=== PATIENT | male | born 1970 | race Caucasian/White ===

== ENCOUNTER → 2016-03-18 | Outpatient (CLI) | payer OTHER ==
--- NOTE | 2016-03-18 12:01 | RAD ---
APPROVED REPORT Test Type: Exercise Stress Nurse/Tech: Carolina Durham R.N. Test Indications: Pre-cordial pain. Cardiac History: HTN Medications: SEE EMR Medical History: SEE EMR Resting ECG: SR Resting Heart Rate: 86 bpm Resting Blood Pressure: 140/90mmHg Pretest Chest Pain: No chest pain Nurse/Tech Notes S1S2, lungs CTA, denied chest pain, dizziness or SOA. Consent: The procedure was explained to the patient in lay terms. Informed consent was witnessed. Chilo eout was entered into [employer]. History and Stress Test performed by Carolina Durham R.N. Stress Symptoms SOA. POST EXERCISE Reason for Termination: Reached target heart rate Target HR: 147 Max HR: 152 bpm 103% of Maximum Predicted HR: 174 bpm Exercise duration: 8:29 min:sec, 3 Stage Exercise capacity: 10.0METs Max Blood Pressure: 182/90mmHg Blood Pressure response to exercise: Normal blood pressure response during stress. Heart Rate response to exercise: Normal Chest Pain: No. Arrhythmia: No. ST Change: No. INTERPRETATION Stress EKG Conclusion: No acute changes were noted. Imaging Protocol IMAGE PROTOCOL: Rest Tc-99m/stress Tc-99m 1 day Rest: Stress: Viability: Radiopharm.Tc99m [id number] Sestamibi [id number] 34mCi Img Date 03/18/2016 03/18/2016 Inj-Img [id number]. 60min. Rest Admin Site:IV - Left AntecubitalAdministrator:DALTON Angelo, ARRT (R)(N) Stress Admin Site: IV - Left AntecubitalAdministrator: FLOR Downs STRESS DATA End Diast. Vol.105.0mlAv. Heart Rate95.0bpm End Syst. Vol.28.0mlCO Index BSA0.0L/min Myocardial Howj956.0gEject. Gzrqfxxh88.0% Stress Rates Pk. Fill Rate4.47EDV/secLVtime Pk. Fill 180.33msec Pk. Empty Rate5.47ESV/secLVtime Pk. Dxaqa783.44msec 03/18 Pk. Fill1.35EDV/sec Stress Scores Regional WT0.00Summed WT0.00 Regional WM0.00Summed WM0.00 The rest and stress images show normal perfusion, normal contraction and thickening. LV Perf. Quant 17 Seg. SSS0.00 17 Seg. SRS1.00 17 Seg. SDS0.00 Stress Defect Extent (% LAD)0.00Rest Defect Extent (% LAD)0.00Rev. Defect Extent (% LAD)0.00 Stress Defect Extent (% LCX) 0.00Rest Defect Extent (% LCX)0.00Rev. Defect Extent (% LCX)0.00 Stress Defect Extent (% RCA)0.00Rest Defect Extent (% RCA)0.00Rev. Defect Extent (% RCA)0.00 Stress Defect Extent (% [place])0.00Rest Defect Extent (% L[place])0.00Rev. Defect Extent (% L[place])0.00 Other Information Quality:Good Risk Assessment: Low Risk Conclusion 1. No evidence of stress induced EKG changes with exercise and good workload at 10 Mets 2. Normal myocardial perfusion at stress/rest 3. Normal EF at > 70% 4. Low risk study
== END | disposition home or self-care (01) ==
LOC: NM 07:27
PROVIDERS: ATTEND Internal Medicine Cardiovascular Disease
DX: R07.2 Precordial pain (principal)
CPT/HCPCS: 78452; 93017; 96374; 96376; A9500